=== PATIENT | female | born 1955 | race African-American/Black ===

== ENCOUNTER 2022-02-03 22:42 | Inpatient (IN) | payer OTHER, MEDICAID ==
[~2022-02-03] VITALS: Ht 157.5 cm; Wt 66.2 kg
[2022-02-03] MEDS ORDERED: MAGNESIUM/ALUMINUM HYDROXIDE/SIMETHICONE 30ML UDC PO ONE (23:30)
[2022-02-03] MEDS ORDERED: DICYCLOMINE 10 MG/5 ML ORAL SYR PO ONE (23:30)
[2022-02-03 23:55] LABS: BASOPHILS % 0.4 % (0.0-2.0); HEMOGLOBIN. 15.6 g/dL (12.0-16.0); MEAN CORPUSCULAR VOLUME 91.2 fL (81.0-99.0); MEAN PLATELET VOLUME 8.7 fl (7.4-10.4); MONOCYTES % 7.6 % (2.0-8.0); PLATELET 214 x1000/uL (130-400); RED BLOOD CELL COUNT 5.04 mill/uL (4.2-5.4); RED CELL DISTRIBUTION WIDTH 14.8 % (11.6-14.6)
[2022-02-04 00:15] LABS: CHLORIDE 105 mEq/L (98-107)
[2022-02-04 00:37] LABS: CLARITY URINE CLEAR (CLEAR); COLOR URINE YELLOW (YELLOW); KETONES URINE NEGATIVE (NEGATIVE); LEUKOCYTE ESTERASE URINE NEGATIVE (NEGATIVE); NITRITE URINE NEGATIVE (NEGATIVE); OCCULT BLOOD URINE TRACE (NEGATIVE); PROTEIN URINE NEGATIVE (NEGATIVE); SPECIFIC GRAVITY URINE 1.017 (1.005-1.030)
[2022-02-04] MEDS ORDERED: ASPIRIN 81MG TABLET PO ONE (01:15)
[2022-02-04] MEDS ORDERED: NITROGLYCERIN 0.4MG TABLET SL SL ONE (03:00)
[2022-02-04 10:00] VITALS: BP 130/74
[2022-02-04] MEDS ORDERED: REGADENOSON 0.4 MG/5 ML IV NR (10:00)
[2022-02-04 11:00] VITALS: BP 130/74
[2022-02-04 12:00] VITALS: BP 134/77
[2022-02-04 12:57] LABS: *AMPHETAMINES SCREEN URINE NEGATIVE (NEGATIVE); *BARBITURATES SCREEN URINE NEGATIVE (NEGATIVE); *BENZODIAZEPINES SCREEN URINE NEGATIVE (NEGATIVE); *COCAINE SCREEN URINE NEGATIVE (NEGATIVE); CANNABINOID URINE SCREEN NEGATIVE (NEGATIVE); METHADONE URINE SCREEN NEGATIVE (NEGATIVE); OPIATES URINE SCREEN NEGATIVE (NEGATIVE); PHENCYCLIDINE URINE SCREEN NEGATIVE (NEGATIVE)
[2022-02-04] MEDS ORDERED: ONDANSETRON HCL 4MG/2ML INJ IV PRN (14:30)
[2022-02-04] MEDS ORDERED: CLONIDINE 0.1MG TABLET PO PRN (14:30)
[2022-02-04] MEDS ORDERED: ACETAMINOPHEN 325MG TABLET PO PRN (14:30)
[2022-02-04] MEDS ORDERED: DEXT 5%/0.45% NACL 1000ML 1,000 ML IV SCH (15:00)
[2022-02-04] MEDS ORDERED: DEXTROSE 50% WATER 50ML SYRINGE IV PRN (15:30)
[2022-02-04] MEDS ORDERED: FAMO-135 MT (15:46)
[2022-02-04] MEDS ORDERED: ATOR20TA MT (15:46)
[2022-02-04] MEDS ORDERED: ASPI-1497 MT (15:46)
[2022-02-04 16:00] VITALS: BP 117/52
[2022-02-04] MEDS ORDERED: PNEUMOCOCCAL 23-VAL P-SAC VAC 0.5 ML IM ONE (16:00)
[2022-02-04] MEDS ORDERED: INFLUENZA VACCINE 05/PF 0.5 ML SYRINGE IM ONE (16:00)
[2022-02-04 16:26] VITALS: BP 117/52
[2022-02-04] MEDS ORDERED: BLOOD SUGAR DIAGNOSTIC STRIP TEST SCH (17:20)
[2022-02-04] MEDS ORDERED: INSULIN LISPRO 100 UNITS/ML SUBCUT SCH (17:50)
== END 2022-02-04 19:12 | disposition home or self-care (01) | DRG 392 ==
LOC: ER 22:42 → MICUSO 02-04 02:29 → 6WST 02-04 09:52
PROVIDERS: ADMIT Internal Medicine; ATTEND Internal Medicine
DX: K21.9 Gastro-esophageal reflux disease without esophagitis (principal); E78.00 Pure hypercholesterolemia, unspecified; E11.9 Type 2 diabetes mellitus without complications; G89.29 Other chronic pain; I10 Essential (primary) hypertension; E78.5 Hyperlipidemia, unspecified; F17.200 Nicotine dependence, unspecified, uncomplicated; Z88.0 Allergy status to penicillin; Z79.899 Other long term (current) drug therapy; K29.70 Gastritis, unspecified, without bleeding
CPT/HCPCS: 36415; 71045; 78452; 80053; 80061; 80305; 81003; 82962; 83036; 83880; 84484; 85025; 90686; 90732; 93005; 93017; 93306; 99285; A9500; J1815; J2785

== ENCOUNTER 2022-09-11 16:50 | Emergency (ER) | payer MEDICARE, MEDICAID ==
[~2022-09-11] VITALS: Ht 154.9 cm; Wt 64.0 kg
[~2022-09-11 16:50] MED LIST: ASPI-1497 MT; ATOR20TA MT; FAMO-135 MT
[2022-09-11] MEDS ORDERED: IBUPROFEN 400MG TABLET PO ONE (18:45)
[2022-09-11 19:21] VITALS: BP 130/80
[2022-09-11] MEDS ORDERED: IBUP-2028 MT (20:51)
== END 2022-09-11 21:29 | disposition home or self-care (01) ==
LOC: ER 16:50
DX: S80.01XA Contusion of right knee, initial encounter (principal); M13.861 Other specified arthritis, right knee; M25.461 Effusion, right knee; E11.9 Type 2 diabetes mellitus without complications; E78.00 Pure hypercholesterolemia, unspecified; I10 Essential (primary) hypertension; Z88.0 Allergy status to penicillin; Z79.82 Long term (current) use of aspirin; X58.XXXA Exposure to other specified factors, initial encounter; Y93.89 Activity, other specified; Y92.89 Other specified places as the place of occurrence of the external cause; Y99.8 Other external cause status
CPT/HCPCS: 73560; 93971; 99284

== ENCOUNTER 2025-02-02 14:21 | Emergency (ER) | payer MEDICARE, MEDICAID ==
[~2025-02-02] VITALS: Ht 165.1 cm; Wt 65.0 kg
[~2025-02-02 14:21] MED LIST changes: +EMPA25TA MT; +SITA50TA3 MT
[2025-02-02 14:22] VITALS: O2SAT 99
[2025-02-02 15:15] LABS: BASOPHILS % 0.6 % (0.0-2.0); EOSINOPHILS % 0.4 % (0.0-5.0); HEMATOCRIT. 46.8 % (36.0-48.0); HEMOGLOBIN. 15.6 g/dL (12.0-16.0); LYMPHOCYTES % 16.2 % (20.0-50.0); MEAN PLATELET VOLUME 8.2 fl (7.4-10.4); MONOCYTES % 7.3 % (2.0-8.0); NEUTROPHILS % 75.5 % (40.0-76.0); PLATELET 186 x1000/uL (130-400); RED BLOOD CELL COUNT 5.10 mill/uL (4.2-5.4); RED CELL DISTRIBUTION WIDTH 13.7 % (11.6-14.6)
[2025-02-02] MEDS: ACETAMINOPHEN 325MG TABLET PO ONE (15:19)
[2025-02-02 15:28] LABS: TROPONIN I HIGH SENSITIVITY < 4 ng/L (3.0-34)
[2025-02-02 15:29] LABS: CREATININE 0.8 mg/dL (0.6-1.0)
[2025-02-02 15:30] LABS: UREA NITROGEN BLOOD 9 mg/dL (9-23)
[2025-02-02 15:31] LABS: ASPARTATE AMINOTRANSFERASE 23 IU/L (<34)
[2025-02-02 15:32] LABS: BILIRUBIN DIRECT 0.2 mg/dL (<=3.0); BILIRUBIN TOTAL 0.5 mg/dL (0.1-1.0); PROTEIN TOTAL 6.9 g/dL (6.0-8.3)
[2025-02-02] MEDS ORDERED: TOPUD MT (15:45)
[2025-02-02 16:36] VITALS: BP 128/76; PULSE 85; RESP 19; TEMP 36.7; O2SAT 99
== END 2025-02-02 16:38 | disposition home or self-care (01) ==
LOC: ER 14:21
DX: R07.89 Other chest pain (principal); E11.9 Type 2 diabetes mellitus without complications; E78.00 Pure hypercholesterolemia, unspecified; I10 Essential (primary) hypertension; M19.90 Unspecified osteoarthritis, unspecified site; J45.909 Unspecified asthma, uncomplicated; Z79.899 Other long term (current) drug therapy; Z79.84 Long term (current) use of oral hypoglycemic drugs; Z79.82 Long term (current) use of aspirin; Z88.0 Allergy status to penicillin; Z88.2 Allergy status to sulfonamides
CPT/HCPCS: 36415; 71045; 80048; 80076; 84484; 85025; 93005; 99285